=== PATIENT | male | born 1965 | race Caucasian/White ===

== ENCOUNTER 2016-11-12 10:20 | Inpatient (IN) | payer OTHER ==
[~2016-11-12] VITALS: Ht 177.8 cm; Wt 83.5 kg
[2016-11-12 12:03] LABS: BASOPHIL % 0.1 % (0-2); PLATELET COUNT 179 x10^3mcL (130-400); RED CELL DISTRIBUTION WIDTH 12.9 % (11.5-14.5)
[2016-11-12 12:20] LABS: CALCIUM 9.2 mg/dL (8.5-10.1); CARBON DIOXIDE 30.7 mmol/L (21-32); CHLORIDE SERUM 103 mmol/L (98-107); CREATININE SERUM 0.9 mg/dL (0.7-1.3); GFR1 > 60 mL/min; GLUCOSE SERUM 121 mg/dL (74-106); POTASSIUM SERUM 4.5 mmol/L (3.5-5.1); SODIUM SERUM 139 mmol/L (136-145)
[2016-11-12 12:25] LABS: ALKALINE PHOSPHATASE 97 U/L (46-116); ALT/SGPT 30 U/L (16-63); AMYLASE 41 U/L (25-115); AST/SGOT 17 U/L (15-37); BILIRUBIN TOTAL 0.95 mg/dL (0.20-1.00); LIPASE 100 IU/L (73-393); TOTAL PROTEIN, SERUM 7.2 g/dL (6.4-8.2)
[2016-11-12 13:48] LABS: CHOLESTEROL/HDL RATIO 4.4; MAGNESIUM 1.9 mg/dL (1.8-2.4); PHOSPHOROUS 2.4 mg/dL (2.5-4.9)
[2016-11-12 13:53] LABS: microscopic required? YES; urine erythrocyte NEGATIVE (NEGATIVE)
[2016-11-12 14:03] LABS: T3 TOTAL 0.93 ng/mL
[2016-11-12 14:17] LABS: AMPHETAMINE QUAL UR NONE DETECTED (NEG <=1000)
[2016-11-12 16:37] LABS: FREE T4 1.03 ng/dL (0.76-1.46); T4(THYROXINE) 6.1 ug/dL (4.7-13.3)
[2016-11-12 17:40] VITALS: BP 111/66
[2016-11-12 17:57] VITALS: BP 111/66
[2016-11-12 22:48] VITALS: BP 100/60
[2016-11-13 06:30] VITALS: BP 98/61
[2016-11-13 06:57] LABS: BASOPHIL % 0.1 % (0-2); PLATELET COUNT 191 x10^3mcL (130-400); RED CELL DISTRIBUTION WIDTH 12.9 % (11.5-14.5)
[2016-11-13 07:16] LABS: CALCIUM 8.9 mg/dL (8.5-10.1); CARBON DIOXIDE 27.7 mmol/L (21-32); CHLORIDE SERUM 104 mmol/L (98-107); CREATININE SERUM 1.1 mg/dL (0.7-1.3); GFR1 > 60 mL/min; GLUCOSE SERUM 123 mg/dL (74-106); PHOSPHOROUS 3.1 mg/dL (2.5-4.9); POTASSIUM SERUM 4.5 mmol/L (3.5-5.1); SODIUM SERUM 140 mmol/L (136-145)
[2016-11-13 08:48] VITALS: BP 99/64
[2016-11-13 12:49] VITALS: BP 127/69
[2016-11-13 16:19] VITALS: BP 124/75
[2016-11-13 20:47] VITALS: BP 110/72
[2016-11-14 05:19] VITALS: BP 109/72
[2016-11-14 06:36] LABS: BASOPHIL % 0.3 % (0-2); PLATELET COUNT 178 x10^3mcL (130-400)
[2016-11-14 07:04] LABS: CALCIUM 8.3 mg/dL (8.5-10.1); CARBON DIOXIDE 26.3 mmol/L (21-32); CHLORIDE SERUM 106 mmol/L (98-107); GFR1 > 60 mL/min; GLUCOSE SERUM 103 mg/dL (74-106); MAGNESIUM 1.8 mg/dL (1.8-2.4); PHOSPHOROUS 2.4 mg/dL (2.5-4.9); POTASSIUM SERUM 3.9 mmol/L (3.5-5.1); SODIUM SERUM 142 mmol/L (136-145)
[2016-11-14 09:35] VITALS: BP 112/74
[2016-11-14 16:54] VITALS: BP 104/66
[2016-11-14 20:56] VITALS: BP 110/78
[2016-11-15 05:50] VITALS: BP 104/64
[2016-11-15 09:28] VITALS: BP 115/79
[2016-11-15] MEDS ORDERED: KEF500 PO (12:45)
[2016-11-15] MEDS ORDERED: LAC PO (12:46)
[2016-11-15] MEDS ORDERED: NORCO1 TA2 PO (12:47)
[2016-11-15] MEDS ORDERED: COLACE100 MG PO (12:47)
[2016-11-15 13:29] VITALS: BP 115/79
== END 2016-11-15 15:23 | disposition home or self-care (01) | DRG 338 ==
LOC: ED 10:20 → DU 13:04 → MU 11-13 16:39
PROVIDERS: Emergency Medicine; Surgery; ADMIT Family Medicine
PROC: 0DTJ4ZZ Resection of Appendix, Percutaneous Endoscopic Approach (ICD-10-PCS; principal; 2016-11-12 15:30)
DX: K35.3 Acute appendicitis with localized peritonitis (principal); N17.0 Acute kidney failure with tubular necrosis; E78.5 Hyperlipidemia, unspecified; E83.39 Other disorders of phosphorus metabolism; R80.8 Other proteinuria
CPT/HCPCS: 80307; 83880; 84439; G0480; J1170; J2405; J2543; J3010; J3490; J7030; Q0092; Q9967